=== PATIENT | female | born 1995 | race Caucasian/White ===

== ENCOUNTER 2024-10-13 08:03 | Outpatient (OUT) | payer MEDICARE, MEDICAID, SELFPAY ==
--- OUTSIDE RECORDS SUMMARY | 2024-10-13 08:09 | XMS_ITS | Clinical Summary ---
Author Organization [facility] Healthcare Address [address] [place] [address] Care Team Providers Care Corporate Law Assistant Name Role Phone Unavailable Primary Care Provider Unavailabl e Social History Tobacco Use Types Packs/Day Years Used Date Smoking Tobacco: Never Assessed Comments Unknown Sex and Gender Information Value Date Recorded Sex Assigned at Not on file Legal Sex Female 11:51 PM EDT Gender Identity Not on file Sexual Orientation Not on file Plan of Treatment Not on file
--- OUTSIDE RECORDS SUMMARY | 2024-10-13 08:09 | XMS_ITS | Referral Summary ---
Author Organization [facility] Address [address] [place] [address] Care Team Providers Care Gis Analyst Name Role Phone Oliver Harris DO Primary Care Provider Encounters Date Type Department Care Team Description 08/18/2024 2:20 PM EDT Office Visit [facility] [address] [place] [address] Oliver Rider MD Benign hypertensive heart disease without congestive heart failure (Primary Dx); Dyspnea on exertion; Bilateral leg edema; Primary hypertension; Cerebral palsy, unspecified type (CMS/HCC); History of COVID-19 from Last 3 Months Allergies No known active allergies Medications ergocalciferol (Vitamin D-2) 1.25 MG (56631 Units) capsule Take 1 capsule by mouth every 7 (seven) days. 06/23/2024 Active hydroCHLOROthia zide (HYDRODiuril) 50 mg tablet Take 1 tablet by mouth in the morning. 08/11/2024 Active sertraline (Zoloft) 50 mg tablet Take 1 tablet by mouth in the morning. 07/24/2024 Active Active Problems Problem Noted Date Diagnosed Date Benign hypertensive heart di sease without congestive heart failure 08/20/2024 Dyspnea on exertion 08/20/2024 Bilateral leg edema 08/20/2024 Primary hypertension 08/20/2024 Mixed obsessional thoughts and acts 06/09/2024 Vitamin D deficiency 06/28/2023 Anxiety-like symptoms 06/25/2023 Current mild episode of jonathan r depressive disorder without prior episode 06/25/2023 Anosmia 06/20/2021 Overview (08/18/2024): D/t COVID-19 History of COVID-19 06/20/2021 Overview (08/18/2024): Mar 2020 and Apr 2021. Did not require hospital level care. 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 Saw a specialist from age 2--24 (Dr. Saini). She had 2 surgeries for this (age 4 and 17)--hamstring lengthening, and metatarsal ORIF. Contracture of Achilles tendon 08/18/2018 Overview (08/18/2024): consequence of gait change after surgery. Went to PT and is wearing braces for this. Intermittently uses PT to improve pain free aROM and wears AFO. Social History Tobacco Use Types Packs/Day Years Used Date Smoking Tobacco: Never Smokeless Tobacco: Never Tobacco Cessation:Counseling Given: Not Answered Alcohol Use Standard Drinks/Week Comments Not Currently 0 (1 standard drink = 0.6 oz pur e alcohol) Comments Unknown Sex and Gender Information Value Date Recorded Sex Assigned at Not on file Legal Sex Female 3:24 PM EDT Gender Identity Not on file Sexual Orientation Not on file Last Filed Vital Signs Vital Sign Reading Time Taken Comments Blood Pressure 145/102 08/18/2024 2:11 PM EDT Pulse 101 08/18/2024 2:11 PM EDT Temperature - - Respiratory Rate - - Oxygen Saturation 98% 08/18/2024 2:11 PM EDT Inhaled Oxygen Concentration - - Weight 94.8 kg (209 lb) 08/18/2024 2:11 PM EDT Height 167.6 cm (5' 6 ) 08/18/2024 2:11 PM EDT Body Mass Index 33.73 08/18/2024 2:11 PM EDT Plan of Treatment Upcoming Encounters Date Type Department Care Team (Late st Contact Info) Description 10/13/2024 1:00 PM EDT Office Visit [facility] [address] [place] [address] Scott Tompkins, MARINE EQUIPMENT DESIGN ENGINEER [address] [place] [address] Procedures Procedure Name Priority Date/Time Associated Diagnosis Comments ECG 12-LEAD Routine 08/18/2024 5:20 PM EDT Dyspnea on exertion ECG 12 LEAD UNIT PERFORMED Routine 08/18/2024 2:45 PM EDT Benign hypertensive heart disease without congestive heart failure from Last 3 Months Results * ECG 12 lead (08/18/2024 5:20 PM EDT) Narrative Oliver Rider MD - 08/18/2024 5:20 PM EDT normal sinus rhythm, heart rate 89 bpm, right axis deviation, borderline EKG Oliver Rider MD ECG ORDERABLES Final Result * ECG 12 lead unit performed (08/18/2024 2:45 PM EDT) Oliver Rider MD ECG ORDERABLES Final Result from Last 3 Months Insurance [place] Care Teams Gis Analyst Relationship Specialty Start Date End Date Oliver Harris DO [address] [place] [address] PCP - General Family Medicine 08/17/24
--- OUTSIDE RECORDS SUMMARY | 2024-10-13 08:09 | XMS_ITS | Clinical Summary ---
Author Organization [facility] Address [id number] [address] [place] [address] Care Team Providers Care Fisheries Technical Officer Name Role Phone Stephen Cheng MD Primary Care Provider [phone] Social History Tobacco Use Types Packs/Day Years Used Date Smoking Tobacco: Never Assessed Childcare Answer Date Recorded Childcare Unknown 09/29/2018 Employment Answer Date Recorded Employment Unknown 09/29/2018 Purpose - Life Answer Date Recorded Purpose and direction in life Unknown Comments Unknown Sex and Gender Information Value Date Recorded Sex Assigned at Not on file Legal Sex Female 6:41 PM EDT Gender Identity Not on file Sexual Orientation Not on file Plan of Treatment Not on file Medical Devices Not on file Insurance [facility] Care Teams Fisheries Technical Officer Relationship Specialty Start Date End Date Stephen Cheng MD PCP - General 09/01/17
--- OUTSIDE RECORDS SUMMARY | 2024-10-13 08:09 | XMS_ITS | Clinical Summary ---
Author Organization [facility] Address [address] [place] [address] Care Team Providers Care Armed Guard Name Role Phone Oliver Harris DO Primary Care Provider [phone] Allergies No known active allergies Medications ergocalciferol (Vitamin D-2) 1.25 MG (69351 Units) capsule Take 1 capsule by mouth [...] improve pain free aROM and wears AFO. Encounters Date Type Department Care Team Description 08/18/2024 2:20 PM EDT Office Visit [facility] [address] [place] [phone] Oliver Rider MD Benign hypertensive heart disease without congestive heart failure (Primary Dx); Dyspnea on exertion; Bilateral leg edema; Primary hypertension; Cerebral palsy, unspecified type (CMS/HCC); History of COVID-19 from Last 3 Months Family History Relation Name Status Comments Brother Alive Father Alive Mother Alive Social History Tobacco Use Types Packs/Day Years [...] Description 10/13/2024 1:00 PM EDT Office Visit [facility] [address] [place] [phone] Scott Tompkins, SOFTWARE SPECIALIST [address] [place] [address] Health Maintenance Due Date Last Done Comments Depression Screening 2007 COVID-19 Vaccine ( season) 2023 07/31/2020, 07/01/2020 Pap Smear 07/08/2024 07/08/2021 Influenza Vaccine (Season Ended) 2024 Adult Tetanus 08/19/2033 08/20/2023 Zoster Vaccines (1 of 2) 12/13/2045 04/14/2024, 06/2023 HIB Vaccines Completed 07/26/2000, 06/18, 07/07/1997, Additional history exists IPV Vaccines Completed 07/26/2000, 12/2000, 07/07/1997, Additional history exists Varicella Vaccines Completed 04/14/2024, 08/20/2023 HPV Vaccines Aged Out No longer eligi ble based on patient's age to complete this topic Meningococcal B Vaccine Aged Out No l onger eligible based on patient's age to complete this topic Meningococcal Vaccine Aged Out No enrrique jerrell eligible based on patient's age to complete this topic Pneumococcal Vaccine: Pediatrics (0 to 5 Years) and At-Risk Patients (6 to 64 Years) Aged Out No longer eligible based on patient's age to complete this topic Rotavirus Vaccines Aged Out No longer eligible based on patient's age to complete this topic Procedures Procedure Name Priority Date/Time Associated Diagnosis Comments ECG 12-LEAD Routine 08/18/2024 5:20 PM EDT Dyspnea on exertion ECG 12 LEAD UNIT PERFORMED Routine 08/18/2024 2:45 PM EDT Benign hypertensive heart disease without congestive heart failure from Last 3 Months Results * ECG 12 lead (08/18/2024 5:20 PM EDT) Oliver Rodriguez MD - 08/18/2024 5:20 PM EDT normal sinus rhythm, heart rate 89 bpm, right axis deviation, borderline EKG Oliver Rider MD ECG ORDERABLES Final Result * ECG 12 lead unit performed (08/18/2024 2:45 PM EDT) Oliver Rider MD ECG ORDERABLES Final Result from Last 3 Months Insurance [place] Care Teams Armed Guard Relationship Specialty Start Date End Date Oliver Harris DO [address] [place] [address] PCP - General Family Medicine 08/17/24
--- NOTE | 2024-10-13 09:00 | CA_ITS ---
Patient Name: ADRIÁN LAM MR#: [id number] : 1995 Exam Date: 10/13/2024 Ordering Doctor: DR. SHILOH MILES M.D. ECHOCARDIOGRAM REPORT PROCEDURE: CA ECHO DOPPLER COMPLETE INDICATIONS: Dyspnea on exertion, edema, hypertension COMPARISON: None. DESCRIPTION: COMPLETE ECHOCARDIOGRAM Real-time transthoracic echocardiography with 2D, M-mode, spectral and color flow Doppler performed. QUALITY: Technical quality was good. LEFT VENTRICLE: Normal chamber size. Borderline wall thickness. Normal systolic function. Estimated left ventricular ejection fraction is 65%. LV EF: Normal left ventricular ejection fraction, (>55%). DIASTOLIC: Normal diastolic function. ATRIAL SEPTUM: Visually appears intact. LEFT ATRIUM: Normal chamber size. RIGHT ATRIUM: Normal chamber size. RIGHT VENTRICLE: Normal chamber size. Normal right ventricular systolic function. TRICUSPID VALVE: Normal mobility and thickness. No stenosis with trivial regurgitation. No evidence of pulmonary hypertension. RVSP 24 mmHg MITRAL VALVE: Normal mobility and thickness. No evidence of mitral valve stenosis. There is no mitral annular calcification. No mitral regurgitation. AORTIC VALVE: Normal trileaflet appearance. No visible sclerosis. Normal leaflet mobility. No evidence of aortic valve stenosis. No aortic regurgitation. AORTIC ROOT: Normal diameter and appearance, measuring 3.1 cm. Normal size ascending aorta measuring 3.1 cm. PULMONIC VALVE: Normal thickness and mobility. No stenosis. Trivial regurgitation. PERICARDIUM: No evidence of pericardial effusion. IVC: Not well visualized. PLEURA: CONCLUSION: 1. Normal ventricular size and systolic function. Estimated LVEF is 65%. 2. Normal diastolic function. 3. No significant valvular dysfunction. 4. Normal right-sided pressures. Adult Echocardiography Procedure Report Left Ventricle LVEDD (3.7 - 5.6 cm): 4.13 cm LVESD (2.2 - 4.0 cm): 3.44 cm LVIVS thickness (0.6 - 1.2 cm): 1.08 cm LVPW thickness (0.5 - 1.0 cm): 1.01 cm E - e': 8.08 LVOT Max Gradient: 2.49 mm[Hg] LVOT Area (cm2): 0.79 m/s Peak Velocity (LVOT): 0.79 m/s LVOT Diameter 2.15 cm Left Ventricular Ejection Fraction: 65 % Left Atrium LA Volume Index (2D A2C): 19.56 ml/m2 Left Atrium Systolic Dimension: 2.85 cm Mitral Valve MV E to A Ratio: 1.56 Mitral Valve A-Wave Peak Velocity: 0.56 m/s Mitral Valve E-Wave Peak Velocity: 0.87 m/s Right Ventricle Aorta AO Root Diam: 3.15 cm Ascending Ao Diam: 3.11 cm Aortic Valve AoV Area (Peak Chris): 3.59 cm2, 3.59 cm2 Peak Velocity(Antegrade Flow): 0.80 m/s Peak Gradient(Antegrade Flow): 2.53 mm[Hg] Tricuspid Valve Peak Velocity (Regurgitant Flow): 2.27 m/s Pulmonic Valve Peak Gradient: 1.91 mm[Hg], 2.49 mm[Hg] Right Atrium Right Atrium Systolic Pressure: 26.42 ml, 26.42 ml Dictated by: Nicola Locke M.D. on 10/13/2024 at 19:05 Approved by: Nicola Locke M.D. on 10/13/2024 at 19:08
== END 2024-10-13 08:04 | disposition home or self-care (01) ==
LOC: US 08:07
PROVIDERS: PCP Family Medicine; Visit Provider Internal Medicine Cardiovascular Disease
DX: I11.9 Hypertensive heart disease without heart failure (principal); R06.09 Other forms of dyspnea; R60.0 Localized edema
CPT/HCPCS: 76775; 93306; 93975

== ENCOUNTER 2024-10-27 06:52 | Outpatient (RCR) | payer MEDICARE, MEDICAID, SELFPAY ==
--- NOTE | 2024-07-28 11:21 | CR1_ITS ---
The [facility] Test Date: 2024-07-28 Pat Name: ADRIÁN LAM Department: Room: - Gender: Female Title Department Manager: : 1995 Requested By: LINDSEY BAUMAN Order Number: [id number] Barbara MD: LINDSEY BAUMAN Interpretive Statements Session Date: Electronically Signed On 07-30-2024 19:59:09 EDT by LINDSEY BAUMAN
--- NOTE | 2024-08-01 14:11 | CR1_ITS ---
The [facility] Test Date: 2024-08-01 Pat Name: ADRIÁN LAM Department: Room: - Gender: Female Technical Sales Director: : 1995 Requested By: Edenilson Cobos Order Number: [id number] Barbara MD: Edenilson Cobos Interpretive Statements Session Date: 08/01/2024 Okay to proceed with outlined treatment plan. Electronically Signed On 08-09-2024 11:01:38 EDT by Edenilson Cobos
--- NOTE | 2024-08-23 07:43 | CR1_ITS ---
The [facility] Test Date: 2024-08-23 Pat Name: ADRIÁN LAM Department: Room: - Gender: Female Office Technology Instructor: : 1995 Requested By: Edenilson Cobos Order Number: [id number] Barbara MD: Edenilson Cobos Interpretive Statements Okay to continue with outlined treatment plan. Electronically Signed On 08-28-2024 7:49:17 EDT by Edenilson Cobos
--- NOTE | 2024-09-21 07:55 | CR1_ITS ---
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 Patient encouraged to continue attending pulmonary rehabilitation. Electronically Signed On 09-21-2024 10:42:39 EDT by Edenilson Cobos
--- NOTE | 2024-10-19 08:27 | CR1_ITS ---
The [facility] Test Date: 2024-10-19 Pat Name: ADRIÁN LAM Department: Room: - Gender: Female Steam Table Attendant: : 1995 Requested By: Edenilson Cobos Order Number: [id number] Barbara MD: Edenilson Cobos Interpretive Statements Okay to continue with outlined treatment plan. Electronically Signed On 10-25-2024 10:04:02 EDT by Edenilson Cobos
--- NOTE | 2024-11-01 08:13 | PC.NURSE ---
letter sent to outreach patient as she has not been seen in rehab in some time.
--- NOTE | 2024-11-14 07:42 | PC.NURSE ---
Letter sent as outreach. Patient has not been seen in a month with no response to prior outreach. Patient has until 12-01-24 to outreach and update staff per attendance policy, or she will be discharged.
== END 2024-11-20 08:34 | disposition home or self-care (01) ==
LOC: CR 06:52
PROVIDERS: PCP Family Medicine; Visit Provider Family Medicine
DX: R06.02 Shortness of breath (principal); Z86.16 Personal history of COVID-19
CPT/HCPCS: 94625; G0239

== ENCOUNTER 2024-12-01 12:50 | Outpatient (OUT) | payer MEDICARE, MEDICAID, SELFPAY ==
--- OUTSIDE RECORDS SUMMARY | 2024-11-17 07:26 | XMS_ITS | Encounter Summary ---
Author Organization [facility] Address [address], [address] [place] [address] Care Team Providers Care Diamond Saw Operator Name Role Phone Oliver Harris DO Primary Care Provider Encounter Details Date Type Department Care Team (Latest Contact Info) Description 11/17/2024 7:26 AM EDT - 11/17/2024 11:59 PM EDT Hospital Encounter [facility] [address] [phone] Irina Adams, PT Discharge Disposition: Home or Self Care Social History Tobacco Use Types Packs/Day Years Used Date Smoking Tobacco: Never Smokeless Tobacco: Never Alcohol Use Standard Drinks/Week Comments Not Currently 0 (1 standard drink = 0.6 oz pur e alcohol) [facility] Utilities Answer Date Recorded In the past 12 months has [employer], [employer], oil, or water [employer] threatened to shut off services in your home? No 04/28/2024 AUDIT-C Answer Date Recorded Q1: How often do you have a drink containing alcohol? Never 10/31/2024 Q2: How many drinks containi ng alcohol do you have on a typical day when you are drinking? Patient does not drink Q3: How often do you have si x or more drinks on one occasion? Never 10/31/2024 Overall Financial Resource Strain (CARDIA) Answe r Date Recorded How hard is it for you to pa y for the very basics like food, housing, medical care, and heating? Not hard at all 12/28/2023 PHQ-2 Answer Date Recorded PHQ-9 Total Score 2 10/31/2024 Exercise Vital Sign Answer Date Recorde d On average, how many days pe r week do you engage in moderate to strenuous exercise (like a brisk walk)? 1 day 10/31/2024 On average, how many minutes do you engage in exercise at this level? 0 min 10/31/2024 Hunger Vital Sign Answer Date Recorded Within the past 12 months, y ou worried that your food would run out before you got the money to buy more. Never true 04/28/19 25 Within the past 12 months, t he food you bought just didn't last and you didn't have money to get more. Never true 04/28/2024 PRAPARE - Transportation Answer Date Re corded In the past 12 months, has l ack of transportation kept you from medical appointments or from getting medications? No 04/19 In the past 12 months, has l ack of transportation kept you from meetings, work, or from getting things needed for daily living? No 04/28/2024 Housing Stability Vital Sign Answer Tonny e Recorded Unable to Pay for Housing in the Last Year Not o n file 10/03/2022 Number of Places Lived in the Last Year Not on f ile 10/03/2022 In the last 12 months, was t here a time when you did not have a steady place to sleep or slept in a alf (including now)? No 10/03/2022 Housing Stability Vital Sign Answer Tonny e Recorded In the last 12 months, was t here a time when you were not able to pay the mortgage or rent on time? No 04/28/2024 In the past 12 months, how m any times have you moved where you were living? 0 04/28/2024 At any time in the past 12 m [facility], were you homeless or living in a alf (including now)? No 04/28/2024 Food Insecurity Answer Date Recorded Within the past 12 months, y ou worried that your food would run out before you got the money to buy more. 1 04/28/2024 Within the past 12 months, t he food you bought just didn't last and you didn't have money to get more. 1 04/28/2024 Comments No Sex and Gender Information Value Date Recorded Sex Assigned at Female 06/20/2021 2:47 PM EST Legal Sex Female 2:54 PM EST Gender Identity Female 06/20/2021 2:47 PM EST Sexual Orientation Straight 06/10/2023 6: 54 PM EST documented as of this encounter Medications at Time of Discharge sertraline (ZOLOFT) 25 MG tablet TAKE 1 AND 1/2 TABLETS DAILY BY MOUTH 10/09/2024 Handicap Placard MISCIndications:Ot her cerebral palsy (HCC) by Does not apply route Display in front windshield of car; DEMETRIS 5 years 1 each 06/25/2023 hydroCHLOROthiazid e (HYDRODIURIL) 50 MG tabletIndications: Secondary hypertension Take 1 tablet by mouth daily 30 tablet 3 08/11/2024 documented as of this encounter Progress Notes * Irina Adams, PT - 11/17/2024 7:30 AM EDT Images from the original note were not included. [facility] Outpatient Physical Therapy Daily Note Date: 11/17/2024 Patient Name: Nancy Garcia : 1995 (28 y.o.) Referring Provider (secondary): Dr. Oliver Harris Diagnosis: Mixed Stress and urge incontiency Treatment Diagnosis: urinary incontience Onset Date: 09/20/24 PT Insurance Information: [facility], Medicaid Total # of Visits Approved: 10 Per Physician Order Total # of Visits to Date: 2 Plan of Care/Certification Expiration Date: 12/15/24 Pre-Treatment Pain: 07/27 Assessment Assessment: Patient reports pain R ankle 4-08/26, R ankle is swollen. Patient reports she followed up with her Dr after fall on 11/03/24 and that R ankle is sprained, no fx. She arrived in w/c today with her mother pushing chair. Patient brought in completed bladder log. Reviewed log and completed education on bladder retraining, bladder irritants and controlig/ supressing bladder urgency. Completed therex per Doc Flow. revied HEP and upgraded HEP with second handout. Continue per plan 1xwk. Plan Continue with current plan of care Exercises/Modalities/Manual: See DocFlow Sheet Education: Bladder retraining handpouts Goals (Total # of Visits to Date: 2) Short Term Goals Time Frame for Short Term Goals: 6 Short Term Goal 1: Patient to be educated on and independent with core exercises including pelvic floor ex Short Term Goal 2: Patient to be educated on and report understanding of bladder retraining and urgency control Fpc Goals Time Frame for Forwarder Operator Goals : 10 Forwarder Operator Goal 1: Improve urinary control with less urinary incontience with Urinary Distress Inventory <10/04 (from 03/06) Treatment Tolerance: Treatment Tolerance: Tolerated treatment well. Post Treatment Pain: 4/10 Time In: 7:31 Time Out : 8:16 Timed Code Treatment Minutes: 45 Minutes Total Treatment Time: 45 Minutes Irina Adams, JEAN-CLAUDE Date: 11/17/2024 documented in this encounter Plan of Treatment Upcoming Encounters Date Type Department Care Team (Late st Contact Info) Description 12/08/2024 7:45 AM EDT Appointment [facility] Physical Therapy [address] [place] [place] [address] Irina Adams, PT documented as of this encounter Visit Diagnoses Not on filedocumented in this encounter Additional Health Concerns Assessment Noted Time A fall risk assessment has been complete d for the patient 10/31/2024 9:16 AM EDT documented as of this encounter Care Teams Diamond Saw Operator Relationship Specialty Start Date End Date Oliver Harris DO [address] [place] [address] PCP - General Family Medicine 06/20/21 documented as of this encounter
--- OUTSIDE RECORDS SUMMARY | 2024-11-17 09:40 | XMS_ITS | Encounter Summary ---
Author Organization [facility] Address [address] [place] [address] Care Team Providers Care Gear Finisher Name Role Phone Oliver Harris DO Primary Care Provider [phone] Reason for Visit * Reason Comments Follow-up Encounter Details Date Type Department Care Team (Late st Contact Info) Description 11/17/2024 9:40 AM EDT Office Visit [facility] [address] [place] [address] Scott Tompkins, ANIMAL COP [address] [place], [place] [id number] Primary hypertension (Primary Dx); Dyspnea on exertion; Bilateral leg edema; Cerebral palsy, unspecified type (CMS/HCC); History of COVID-19 Social History Tobacco Use Types Packs/Day Years Used Date Smoking Tobacco: Never Smokeless Tobacco: Never Alcohol Use Standard Drinks/Week Comments Not Currently 0 (1 standard drink = 0.6 oz pur e alcohol) Comments Unknown Sex and Gender Information Value Date Recorded Sex Assigned at Female 11/15/2024 3:33 PM EDT Legal Sex Female 3:24 PM EDT Gender Identity Female 11/15/2024 3:33 PM EDT Sexual Orientation Heterosexual or Straight 10/19 3:33 PM EDT documented as of this encounter Last Filed Vital Signs Vital Sign Reading Time Taken Comments Blood Pressure 162/100 11/17/2024 9:31 AM EDT Pulse 90 11/17/2024 9:31 AM EDT Temperature - - Respiratory Rate 12 11/17/2024 9:31 AM EDT Oxygen Saturation 99% 11/17/2024 9:31 AM EDT Inhaled Oxygen Concentration - - Weight 94.8 kg (209 lb) 11/17/2024 9:31 AM EDT Height 167.6 cm (5' 6 ) 11/17/2024 9:31 AM EDT Body Mass Index 33.73 11/17/2024 9:31 AM EDT documented in this encounter Progress Notes * Scott Tompkins, ANIMAL COP - 11/17/2024 9:40 AM EDT Images from the original note were not included. SUBJECTIVE Reason for Visit: Nancy Garcia is a 28 y.o. year old female patient being seen for follow-up visit. HPI: Nancy Garcia is a 28 y.o. year old female with significant medical history of hypertension. On hydrochlorothiazide which was started mainly because of complaint of leg edema, she has history of cerebral palsy and also anxiety depression disorder and mixed obsessional thoughts and acts. Patient reports that she had COVID infection in 2019 in 2020, although it was mild however it left her with significant shortness of breath therefore she was sent for pulmonary rehabilitation. She was not hospitalized because of COVID. She has been noticing some swelling in her lower extremities particularly of the feet. Also she reports that her legs become red when she is walking on treadmill. She walks on treadmill about 10 minutes with minor incline at 1.5 to 2 mph and she exercise on stationary bike for about 30 to 35 minutes. Of breath has been improving. She denies that she underwent pulmonary function test. Also she reports that she always had little legs edema but it got worse after COVID. 11/17/2024 office visit: Patient seen and evaluated in the office today, accompanied by her mom. She reports worsening lowerextremity edema after starting amlodipine, now better now that she has stopped. She reported urge incontinence with lisinopril and amlodipine. She states her GARCIA is stable. Otherwise she denies chestpain, palpitations, lightheadedness or dizziness. Reports her blood pressures are elevated at home ranging in the 140s to 150s systolic. 08/18/2024 office visit (Dr. Rider): She denies any chest pain at rest or with exertion. She denies orthopnea or paroxysmal nocturnal dyspnea or dizziness. She reports that her heart rate goes up she feels very faint while she is exercising but not in any other time. She wears braces on the left foot due to cerebral palsy. She reports that she had whitecoat syndrome in the past and blood pressure was always high at the doctor office even before she got COVID. She denies caffeine consumption, she denies smoking, alcohol or illicit drugs Medical History[1] Surgical History[2] Problem List[3] family history is not on file. Social History[4] OBJECTIVE Visit Vitals Smoking Status Never Physical Exam Constitutional: General Appearance: well-developed, appears stated age. Level of Distress: no acute distress. Neck: Jugular Veins: normal jugular venous pressure. Lungs: Auscultation: no rales or rhonchi and normal breath sounds. Cardiovascular: Rate And Rhythm: regular Heart Sounds: normal S1 and s2; Systolic Murmur: not heard. Diastolic Murmur: not heard. Extremities: +2 LE edema Peripheral Pulses: Pulses: full and equal in all extremities except if noted. Abdomen: Inspection and Palpation: non distended or tender and soft. Musculoskeletal: Inspection: no joint tenderness or swelling. Neurologic: Gait: normal gait. Psychiatric: Mental Status: alert and normal affect. Skin: Inspection and Palpation: warm and dry. Allergies: Allergies[5] Outpatient Medications: Current Outpatient Medications Medication Instructions ergocalciferol (Vitamin D-2) 1.25 MG (71745 Units) capsule 1 capsule, oral, Every 7 days hydroCHLOROthiazide (HYDRODiuril) 50 mg tablet 1 tablet, oral, Daily sertraline (Zoloft) 50 mg tablet 1 tablet, oral, Daily Recent Labs: No visits with results within 2 Month(s) from this visit. Latest known visit with results is: No results found for any previous visit. I have personally reviewed and anaylzed the following laboratory results above. These findings havebeen analyzed in the context of the patient's clinical presentation. Cardiovascular Diagnostic Studies: TTE 10/13/2024: Conclusion: 1. Normal ventricular size and systolic function. Estimated LVEF is 65%. 2. Normal diastolic function. 3. No significant valvular dysfunction. 4. Normal right-sided pressures. Labs: 06/16/2024 Vitamin D 28.7 05/19/2024: Sodium 137, potassium 3.1, BUN 9, creatinine 0.6, glucose 93, GFR above 90, calcium 9.6 Total bilirubin 0.3, alk phos 110, ALT 18, AST 16 White blood count 5.9, hemoglobin 14.2, hematocrit 43, platelet 370 HbA1c 4.6% Last Images: EKG 08/18/2024 showed normal sinus rhythm, heart rate 89 bpm, right axis deviation, borderline EKG 12 Lead ECG: Encounter Date: 08/18/24 ECG 12 lead Narrative normal sinus rhythm, heart rate 89 bpm, right axis deviation, borderline EKG I have personally reviewed and analyzed all available cardiac diagnostic tests and imaging reports.Findings have been analyzed in the context of the patient's clinical status. Assessment and Plan #Hypertension Blood pressure today is 162/100 Elevated Patient reports blood pressures at home range from 140s to 150s Patient did not tolerate amlodipine or lisinopril due to side effects, urinary urge incontinence Renal ultrasound 10/13/2024: No evidence of hemodynamically significant renal artery stenosis TSH 5.23, T4 1.0 - Continue hydrochlorothiazide 50 mg daily - Add losartan 25 mg daily #Dyspnea on exertion TTE normal 10/13/2024: EF 65%, no significant valvular abnormalities GARCIA is stable - Obtain PFTs #Bilateral lower extremity edema TTE normal 10/13/2024: EF 65%, no significant valvular abnormalities +2 lower extremity edema that was worsened with amlodipine ---> now improved some since discontinuing Patient mentions she has had stable lower extreme edema since being diagnosed with COVID-19 #History of COVID-19 Patient had mild COVID in [id number], resulting in persistent dyspnea requiring pulmonary rehab. Shewas not hospitalized. Reports worsening chronic leg edema and redness with treadmill use. Exercisesdaily and notes improved breathing. No pulmonary function test done. #Cerebral palsy Plan Overview: Follow-up in 2 months Will add losartan 25 mg daily Obtain PFTs BMP in 1 week No follow-ups on file. Scott Tompkins, [facility] Cardiovascular Medicine [1] Past Medical History: Diagnosis Date Cerebral palsy (CMS/HCC) Hypertension [2] No past surgical history on file. [3] Patient Active Problem List Diagnosis Anosmia Anxiety-like symptoms Cerebral palsy (CMS/HCC) Contracture of Achilles tendon Current mild episode of major depressive disorder without prior episode History of COVID-19 Mixed obsessional thoughts and acts Vitamin D deficiency Benign hypertensive heart disease without congestive heart failure Dyspnea on exertion Bilateral leg edema Primary hypertension [4] Social History Tobacco Use Smoking status: Never Smokeless tobacco: Never Substance Use Topics Alcohol use: Not Currently Drug use: Never [5] No Known Allergies documented in this encounter Plan of Treatment Upcoming Encounters Date Type Department Care Team (Late st Contact Info) Description 01/12/2025 10:00 AM EDT Office Visit [facility] [address] [place] [phone] Scott Tompkins CNP [address] [place] [address] Scheduled Orders Name Type Priority Associated Diagnoses Orde r Schedule Basic metabolic panel Lab Routine Primary hypertension Expected: 11/17/2024 (Approximate), Expires: 11/17/2025 Pulmonary function testing Spirometry; Body Box (lung volumes, airway resistance, and SVC), DLCO PFT Routine Dyspnea on exertion Expected: 11/17/2024 (Approximate), Expires: 11/17/2025 documented as of this encounter Visit Diagnoses Diagnosis Primary hypertension- Primary Unspecified essential hypertension Dyspnea on exertion Other dyspnea and respiratory abnormality Bilateral leg edema Edema Cerebral palsy, unspecified type (CMS/HCC) History of COVID-19 documented in this encounter Care Teams Gear Finisher Relationship Specialty Start Date End Date Oliver Harris DO [address] [place] [address] PCP - General Family Medicine 08/17/24 documented as of this encounter
--- OUTSIDE RECORDS SUMMARY | 2024-11-24 07:27 | XMS_ITS | Encounter Summary ---
Author Organization [facility] Address [address], [address] [place] [address] Care Team Providers Care Application Support Lead Name Role Phone Oliver Harris DO Primary Care Provider [phone] Encounter Details Date Type Department Care Team (Latest Contact Info) Description 11/24/2024 7:27 AM EDT - 11/24/2024 11:59 PM EDT Hospital Encounter [facility] [address] [id number] Irina Adams, PT Discharge Disposition: Home or Self Care Social History Tobacco Use Types Packs/Day Years Used Date Smoking Tobacco: Never Smokeless Tobacco: Never Alcohol Use Standard Drinks/Week Comments Not Currently 0 (1 standard drink = 0.6 oz pur e alcohol) [facility] Utilities Answer Date Recorded In the past 12 months has [employer], [employer], oil, or water [employer] threatened to shut off services in your [...] place to sleep or slept in a penitentiary (including now)? No 10/03/2022 Housing Stability Vital Sign Answer Tonny e Recorded In the last 12 months, was t here a time when you were not able to pay the mortgage or rent on time? No 04/28/2024 In the past 12 months, how m any times have you moved where you were living? 0 04/28/2024 At any time in the past 12 m [facility], were you homeless or living in a penitentiary (including now)? No 04/28/2024 Food Insecurity Answer [...] Progress Notes * Irina Adams, PT - 11/24/2024 7:30 AM EDT Images from the original note were not included. [facility] Outpatient Physical Therapy Daily Note Date: 11/24/2024 Patient Name: Nancy Garcia : 1995 (28 y.o.) Referring Provider (secondary): Dr. Oliver Harris Diagnosis: Mixed Stress and urge incontiency Treatment Diagnosis: urinary incontience Onset Date: 09/20/24 PT Insurance Information: MCR, Medicaid Total # of Visits Approved: 10 Per Physician Order Total # of Visits to Date: 3 Plan of Care/Certification Expiration Date: 12/15/24 Pre-Treatment Pain: 2/10 Assessment Assessment: Pain 2/10 in legs and feet this morning from muscle tone from CP. Completed therex per Doc Flow. Reviewed HEP, patient independent and reports compliance. Added education on stretching and stretching ex.Reviewed bladder training techniques , patient verbalizes understanding. Plan Continue with current plan of care Exercises/Modalities/Manual: See DocFlow Sheet Education: Goals (Total # of Visits to Date: 3) Short Term Goals Time Frame for Short Term Goals: 6 Short Term Goal 1: Patient to be educated on and independent with core exercises including pelvic floor ex-MET Short Term Goal 2: Patient to be educated on and report understanding of bladder retraining and urgency control-MET [employer] Driver Goals Time Frame for Residential Goals : 10 [employer] Driver Goal 1: Improve urinary control with less urinary incontience with Urinary Distress Inventory <6/18 (from 03/06) Treatment Tolerance: Treatment Tolerance: Tolerated treatment well. Post Treatment Pain: 2/10 Time In: 7:30 Time Out : 8:15 Timed Code Treatment Minutes: 45 Minutes Total Treatment Time: 45 Minutes Irina Adams PT Date: 11/24/2024 documented in this encounter Plan of Treatment Upcoming Encounters Date Type Department Care Team (Late st Contact Info) Description 12/08/2024 7:45 AM EDT Appointment [facility] Physical Therapy [address] [place] [address] Irina Adams, PT documented as of this encounter Visit Diagnoses Not on filedocumented in this encounter Additional Health Concerns Assessment Noted Time A fall risk assessment has been complete d for the patient 10/31/2024 9:16 AM EDT documented as of this encounter Care Teams Application Support Lead Relationship Specialty Start Date End Date Oliver Harris DO [address] [place] [address] PCP - General Family Medicine 06/20/21 documented as of this encounter
--- OUTSIDE RECORDS SUMMARY | 2024-12-01 07:45 | XMS_ITS | Encounter Summary ---
Author Organization [facility] Address [address], [address] [place] [address] Care Team Providers Care Tailor Men'S Ready To Wear Name Role Phone Oliver Harris DO Primary Care Provider Encounter Details Date Type Department Care Team (Late st Contact Info) Description 12/01/2024 7:45 AM EDT Hospital Encounter [facility] [address] [place] [address] Radha Grier Arrived Social History Tobacco Use Types Packs/Day Years Used Date Smoking Tobacco: Never Smokeless Tobacco: Never Alcohol Use Standard Drinks/Week Comments Not Currently 0 (1 standard drink = 0.6 oz pur e alcohol) [facility] Utilities Answer Date Recorded In the past 12 months has [employer], gas, oil, or water [employer] threatened to shut off services in your [...] place to sleep or slept in a fpc (including now)? No 10/03/2022 Housing Stability Vital Sign Answer Tonny e Recorded In the last 12 months, was t here a time when you were not able to pay the mortgage or rent on time? No 04/28/2024 In the past 12 months, how m any times have you moved where you were living? 0 04/28/2024 At any time in the past 12 m [facility], were you homeless or living in a fpc (including now)? No 04/28/2024 Food Insecurity Answer [...] PM EST documented as of this encounter Plan of Treatment Upcoming Encounters Date Type Department Care Team (Late st Contact Info) Description 12/08/2024 7:45 AM EDT Appointment [facility] Physical Therapy [address] [place] [address] Irina Adams, PT documented as of this encounter Visit Diagnoses Not on filedocumented in this encounter Additional Health Concerns Assessment Noted Time A fall risk assessment has been complete d for the patient 10/31/2024 9:16 AM EDT documented as of this encounter Care Teams Tailor [employer] Ready To Wear Relationship Specialty Start Date End Date Oliver Harris DO [address] [place] [address] PCP - General Family Medicine 06/20/21 documented as of this encounter
--- OUTSIDE RECORDS SUMMARY | 2024-12-01 08:33 | XMS_ITS | Encounter Summary ---
Author Organization [facility] Address [address], [address] [place] [address] Care Team Providers Care R And D Lab Technician Name Role Phone Oliver Harris DO Primary Care Provider Encounter Details Date Type Department Care Team (Latest Contact Info) Description 12/01/2024 8:33 AM EDT Hospital Encounter [facility] [address] [place] [address] Essential hypertension; Bilateral swelling of feet and ankles; Elevated TSH; Cervical cancer screening Social History Tobacco Use Types Packs/Day Years Used Date Smoking Tobacco: Never Smokeless Tobacco: Never Alcohol Use Standard Drinks/Week Comments Not Currently 0 (1 standard drink = 0.6 oz pur e alcohol) [facility] Utilities Answer Date Recorded In the past 12 months has [employer], gas, oil, or water [employer] threatened to shut off services in your [...] place to sleep or slept in a intermediate (including now)? No 10/03/2022 Housing Stability Vital Sign Answer Tonny e Recorded In the last 12 months, was t here a time when you were not able to pay the mortgage or rent on time? No 04/28/2024 In the past 12 months, how m any times have you moved where you were living? 0 04/28/2024 At any time in the past 12 m [facility], were you homeless or living in a intermediate (including now)? No 04/28/2024 Food Insecurity Answer [...] Info) Description 12/08/2024 7:45 AM EDT Appointment [facility] Physical Therapy [address] [place] [address] Irina Adams, PT Pending Results Name Type Priority Associated Diagnoses Date /Time Aldosterone Lab Routine Essential hypertension 12/01/2024 8:35 AM EDT Thyroid Antibodies Lab Routine Elevated TSH 12/01/2024 8:35 AM EDT Scheduled Orders Name Type Priority Associated Diagnoses Orde r Schedule Aldosterone Lab Routine Essential hypertension 1 Occurrences starting 12/01/2024 until 12/01/2024 Thyroid Antibodies Lab Routine Elevated TSH 1 Occurrences starting 12/01/2024 until 12/01/2024 PAP Smear Lab Routine Cervical cancer screening 1 Occurrences starting 12/01/2024 until 12/01/2024 documented as of this encounter Procedures Procedure Name Priority Date/Time Associated Diagnosis Comments COMPREHENSIVE METABOLIC PANEL Routine 12/01/2024 8:35 AM EDT Bilateral swelling of feet and ankles Essential hypertension BASIC METABOLIC PANEL Routine 12/01/2024 8:35 AM EDT documented in this encounter Results * (ABNORMAL) Basic Metabolic Panel (12/01/2024 8:35 AM EDT) Sodium 138 135 - 144 mmol/L 12/01/2024 8:35 AM EDT [facility] Potassium 2.8(LL) 3.7 - 5.3 mmol/L 12/01/2024 8:35 AM EDT [facility] Chloride 95(L) 98 - 107 mmol/L 12/01/2024 8:35 AM EDT [facility] CO2 30 20 - 31 mmol/L 12/01/2024 8:35 AM EDT [facility] Anion Gap 13 9 - 17 mmol/L 12/01/2024 8:35 AM EDT [facility] Glucose 100(H) 70 - 99 mg/dL 12/01/2024 8:35 AM EDT [facility] BUN 8 6 - 20 mg/dL 12/01/2024 8:35 AM EDT [facility] Creatinine 0.5 0.5 - 0.9 mg/dL 12/01/2024 8:35 AM EDT [facility] Est, Glom Filt Rate >90 >60 mL/min/1.7 3m2 12/01/2024 8:35 AM EDT [facility] Comment: These results are not intended for use in patients <18 years of age. eGFR results are calculated without a race factor using the 2020 CKD-EPI equation. Careful clinical correlation is recommended, particularly when comparing to results calculated using previous equations. The CKD-EPI equation is less accurate in patients with extremes of muscle mass, extra-renal metabolism of creatine, excessive creatine ingestion, or following therapy that affects renal tubular secretion. Calcium 9.3 8.6 - 10.4 mg/dL 12/01/2024 8:35 AM EDT [facility] 12/01/2024 8:35 AM EDT 12/01/2024 8:40 AM EDT Scott Tompkins HVAC SPECIALIST - SANITATION LABORER CHEMISTRY ORDERABLES Sophie crawley Result [facility] [address] [place] [id number], [facility] [phone] * (ABNORMAL) Comprehensive Metabolic Panel (12/01/2024 8:35 AM EDT) Sodium 137 135 - 144 mmol/L 12/01/2024 8:35 AM EDT [facility] Potassium 2.8(LL) 3.7 - 5.3 mmol/L 12/01/2024 8:35 AM EDT [facility] Chloride 96(L) 98 - 107 mmol/L 12/01/2024 8:35 AM EDT [facility] CO2 31 20 - 31 mmol/L 12/01/2024 8:35 AM EDT [facility] Anion Gap 10 9 - 17 mmol/L 12/01/2024 8:35 AM [facility] Glucose 100(H) 70 - 99 mg/dL 12/01/2024 8:35 AM [facility] BUN 8 6 - 20 mg/dL 12/01/2024 8:35 AM [facility] Creatinine 0.4(L) 0.5 - 0.9 mg/dL 12/01/2024 8:35 AM [facility] Est, Glom Filt Rate >90 >60 mL/min/1.7 3m2 12/01/2024 8:35 AM [facility] Comment: These results are not intended for use in patients <18 years of age. eGFR results are calculated without a race factor using the 2020 CKD-EPI equation. Careful clinical correlation is recommended, particularly when comparing to results calculated using previous equations. The CKD-EPI equation is less accurate in patients with extremes of muscle mass, extra-renal metabolism of creatine, excessive creatine ingestion, or following therapy that affects renal tubular secretion. Calcium 9.3 8.6 - 10.4 mg/dL 12/01/2024 8:35 AM [facility] Total Protein 7.3 6.4 - 8.3 g/dL 12/01/2024 8:35 AM [facility] Albumin 3.9 3.5 - 5.2 g/dL 12/01/2024 8:35 AM [facility] Albumin/Globulin Ratio 1.1 1.0 - 2.5 12/01/2024 8:35 AM [facility] Total Bilirubin 0.4 0.3 - 1.2 mg/dL 12/01/2024 8:35 AM [facility] Alkaline Phosphatase 95 35 - 104 U/L 12/01/2024 8:35 AM [facility] ALT 14 5 - 33 U/L 12/01/2024 8:35 AM [facility] AST 18 <32 U/L 12/01/2024 8:35 AM [facility] Blood BLOOD SPECIMEN / Unknown 12/01/2024 8:35 AM EDT 12/01/2024 8:36 AM EDT Oliver Harris DO CHEMISTRY ORDERABLES Final Result [facility] [address] [place] [address], [facility] [phone] documented in this encounter Visit Diagnoses Diagnosis Essential hypertension Unspecified essential hypertension Bilateral swelling of feet and ankles Elevated TSH Other abnormal blood chemistry Cervical cancer screening Screening for malignant neoplasm of the cervix documented in this encounter Additional Health Concerns Assessment Noted Time A fall risk assessment has been complete d for the patient 10/31/2024 9:16 AM EDT documented as of this encounter Care Teams R And D Lab Technician Relationship Specialty Start Date End Date Oliver Harris DO [address] [place] [address] PCP - General Family Medicine 06/20/21 documented as of this encounter
--- OUTSIDE RECORDS SUMMARY | 2024-12-01 09:40 | XMS_ITS | Encounter Summary ---
Author Organization [facility] Address [address], [address] [place] [address] Care Team Providers Care Farm Equipment Engine Mechanic Name Role Phone Oliver Harris DO Primary Care Provider Reason for Visit * Reason Comments Well Woman Visit Encounter Details Date Type Department Care Team (Late st Contact Info) Description 12/01/2024 9:40 AM EDT Office Visit [facility] [address] [place] [address] Irma Henson DO [address] [place] [address] Hypokalemia (Primary Dx); Cervical cancer screening Social History Tobacco Use Types Packs/Day Years Used Date Smoking Tobacco: Never Smokeless Tobacco: Never Alcohol Use Standard Drinks/Week Comments Not Currently 0 (1 standard drink = 0.6 oz pur e alcohol) [facility] Utilities Answer Date Recorded In the past 12 months has [employer], gas, oil, or water [employer] threatened to shut off services in your [...] place to sleep or slept in a long term (including now)? No 10/03/2022 Housing Stability Vital Sign Answer Tonny e Recorded In the last 12 months, was t here a time when you were not able to pay the mortgage or rent on time? No 04/28/2024 In the past 12 months, how m any times have you moved where you were living? 0 04/28/2024 At any time in the past 12 m [facility], were you homeless or living in a long term (including now)? No 04/28/2024 Food Insecurity Answer [...] PM EST documented as of this encounter Last Filed Vital Signs Vital Sign Reading Time Taken Comments Blood Pressure 140/92 12/01/2024 9:40 AM EDT Pulse 95 12/01/2024 9:40 AM EDT Temperature - - Respiratory Rate - - Oxygen Saturation 98% 12/01/2024 9:40 AM EDT Inhaled Oxygen Concentration - - Weight 98.4 kg (217 lb) 12/01/2024 9:40 AM EDT Height 167.6 cm (5' 6 ) 12/01/2024 9:40 AM EDT Body Mass Index 35.02 12/01/2024 9:40 AM EDT documented in this encounter Plan of Treatment Upcoming Encounters Date Type Department Care Team (Late st Contact Info) Description 12/08/2024 7:45 AM EDT Appointment [facility] Physical Therapy [address] [place] [address] Irina Adams, PT Scheduled Orders Name Type Priority Associated Diagnoses Orde r Schedule Potassium Lab Routine Hypokalemia Expected: 12/04/2024, Expires: 12/01/2025 PAP Smear Lab Routine Cervical cancer screening Expected: 12/01/2024 (Approximate), Expires: 12/01/2025 documented as of this encounter Visit Diagnoses Diagnosis Hypokalemia- Primary Hypopotassemia Cervical cancer screening Screening for malignant neoplasm of the cervix documented in this encounter Additional Health Concerns Assessment Noted Time A fall risk assessment has been complete d for the patient 10/31/2024 9:16 AM EDT documented as of this encounter Care Teams Farm Equipment Engine Mechanic Relationship Specialty Start Date End Date Oliver Harris DO [address] [place] [address] PCP - General Family Medicine 06/20/21 documented as of this encounter
--- OUTSIDE RECORDS SUMMARY | 2024-12-01 12:54 | XMS_ITS | Encounter Summary ---
Author Organization [facility] Address [address], [address] [place] [address] Care Team Providers Care Special Investigation Unit Investigator Name Role Phone Oliver Harris DO Primary Care Provider Encounter Details Date Type Department Care Team (Late st Contact Info) Description 11/06/2024 Results Follow-Up [facility] ASIA [address] [place] [address] Irma Henson, [address] [place] [address] Social History Tobacco Use Types Packs/Day Years Used Date Smoking Tobacco: Never Smokeless Tobacco: Never Alcohol Use Standard Drinks/Week Comments Not Currently 0 (1 standard drink = 0.6 oz pur e alcohol) [facility] Utilities Answer Date Recorded In the past 12 months has [employer], gas, oil, or water [employer] threatened to shut off services in your [...] place to sleep or slept in a mcfp (including now)? No 10/03/2022 Housing Stability Vital Sign Answer Tonny e Recorded In the last 12 months, was t here a time when you were not able to pay the mortgage or rent on time? No 04/28/2024 In the past 12 months, how m any times have you moved where you were living? 0 04/28/2024 At any time in the past [address] [facility], were you homeless or living in a mcfp (including now)? No 04/28/2024 Food Insecurity Answer [...] Info) Description 12/08/2024 7:45 AM EDT Appointment [facility] Physical Therapy [address] [place] [address] Irina Adams, PT Pending Results Name Type Priority Associated Diagnoses Date /Time Thyroid Antibodies Lab Routine Elevated TSH 12/01/2024 8:35 AM EDT Scheduled Orders Name Type Priority Associated Diagnoses Orde r Schedule Thyroid Antibodies Lab Routine Elevated TSH Expected: 11/06/2024, Expires: 11/06/2025 documented as of this encounter Visit Diagnoses Diagnosis Elevated TSH- Primary Other abnormal blood chemistry documented in this encounter Additional Health Concerns Assessment Noted Time A fall risk assessment has been complete d for the patient 10/31/2024 9:16 AM EDT documented as of this encounter Care Teams Special Investigation Unit Investigator Relationship Specialty Start Date End Date Oliver Harris DO [address] [place] [address] PCP - General Family Medicine 06/20/21 documented as of this encounter
--- OUTSIDE RECORDS SUMMARY | 2024-12-01 12:54 | XMS_ITS | Encounter Summary ---
Author Organization [facility] Address [address], [address] [place] [address] Care Team Providers Care Interpretative Dancer Name Role Phone Oliver Harris DO Primary Care Provider [phone] Encounter Details Date Type Department Care Team (Late st Contact Info) Description 10/16/2024 Orders Only [facility] [address] [place] [id number] Provider, MD Wilber Social History Tobacco Use Types Packs/Day Years Used Date Smoking Tobacco: Never Smokeless Tobacco: Never Alcohol Use Standard Drinks/Week Comments Not Currently 0 (1 standard drink = 0.6 oz pur e alcohol) [facility] Utilities Answer Date Recorded In the past 12 months has [employer], gas, oil, or water company threatened to shut off services in your home? No 04/28/2024 Overall Financial Resource Strain (CARDIA) Answe r Date Recorded How hard is it for you to pa y for the very basics like food, housing, medical care, and heating? Not hard at all 12/28/2023 PHQ-2 Answer Date Recorded PHQ-9 Total Score 9 04/25/2024 Hunger Vital Sign Answer Date Recorded Within [...] place to sleep or slept in a fci (including now)? No 10/03/2022 Housing Stability Vital Sign Answer Tonny e Recorded In the last 12 months, was t here a time when you were not able to pay the mortgage or rent on time? No 04/28/2024 In the past 12 months, how m any times have you moved where you were living? 0 04/28/2024 At any time in the past 12 m [facility], were you homeless or living in a fci (including now)? No 04/28/2024 Food Insecurity Answer [...] Info) Description 12/08/2024 7:45 AM EDT Appointment [facility] Physical Therapy [address] [place] [address] Irina Adams, PT documented as of this encounter Procedures Procedure Name Priority Date/Time Associated Diagnosis Comments ECHOCARDIOGRAM TRANSTHORACIC Routine 10/13/2024 7:48 AM EDT documented in this encounter Results * Echocardiogram transthoracic (10/13/2024 7:48 AM EDT) us Historical Provider ECHO ORDERABLES Final Res ult documented in this encounter Visit Diagnoses Not on filedocumented in this encounter Care Teams Interpretative Dancer Relationship Specialty Start Date End Date Oliver Harris DO [address] [place] [address] PCP - General Family Medicine 06/20/21 documented as of this encounter
--- OUTSIDE RECORDS SUMMARY | 2024-12-01 12:54 | XMS_ITS | Clinical Summary ---
Author Organization [facility] Address [address], [address] [place] [address] Care Team Providers Care General Service Officer Name Role Phone Oliver Harris DO Primary Care Provider Allergies No known active allergies Medications Handicap Placard MISCIndications: Other cerebral palsy (HCC) by Does not apply route Display in front windshield of car; DEMETRIS 5 years 1 each 4 Active sertraline (ZOLOFT) 25 MG tablet TAKE 1 AND 1/2 TABLETS DAILY BY MOUTH 5 Active losartan (COZAAR) 25 MG tablet Take 2 tablets by mouth daily 180 tablet 5 Active potassium chloride (KLOR-CON M) 20 MEQ extended release tablet Take 1 tablet by mouth 2 times daily 60 tablet 5 Active clindamycin (CLEOCIN) 300 MG capsule Take 1 capsule by mouth 2 times daily for 7 days 14 capsule 5 025 Active hydroCHLOROthiaz bharati (HYDRODIURIL) 50 MG tabletIndication s:Secondary hypertension Take 1 tablet by mouth daily 30 tablet 3 5 025 Discontin ued(Side effects) sertraline (ZOLOFT) 50 MG tablet Take 0.5 tablets by mouth daily 5 025 Discontin ued(LIST CLEANUP) amLODIPine (NORVASC) 5 MG tabletIndication s:Essential hypertension Take 1 tablet by mouth daily 30 tablet 5 5 025 Discontin ued(Side effects) Active Problems Problem Noted Date Diagnosed Date Other specified eating disorder 11/03/2024 Mixed obsessional thoughts and acts 06/09/2024 Vitamin D deficiency 06/28/2023 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 Did not require hospital level care. 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 Saw a specialist from age 2--24 (Dr. Saini). She had 2 surgeries for this (age 4 and 17)--hamstring lengthening, and metatarsal ORIF. 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 Went to PT and is wearing braces for this. Intermittently uses PT to improve pain free aROM and wears AFO. Resolved Problems Problem Noted Date Diagnosed Date Resolved Date Deformity of lower extremity 08/18/2018 06/20/2021 Encounters Date Type Department Care Team Description 12/01/2024 9:40 AM EDT Office Visit [facility] ASIA [address] [place] [phone] Irma Henson DO Hypokalemia (Primary Dx); Cervical cancer screening 12/01/2024 8:33 AM EDT Hospital Encounter [facility] [address] [place] [address] Essential hypertension; Bilateral swelling of feet and ankles; Elevated TSH; Cervical cancer screening 12/01/2024 7:45 AM EDT Hospital Encounter [facility] [address] [place] [address] Radha Grier 12/01/2024 Results Follow-Up [address] [address] Oliver Harris, DO 12/01/[address] [address] Irma Henson, DO Medication Refill 11/29/[address] [address] Oliver Harris, DO Hypertension (/) 11/24/2024 7:27 AM EDT - 11/24/2024 11:59 PM EDT Hospital Encounter [facility] [address] [place] [address] Irina Adams, PT Discharge Disposition: Home or Self Care 11/21/[address] [address] Irma Henson, DO appointment moved 11/17/2024 7:26 AM EDT - 11/17/2024 11:59 PM EDT Hospital Encounter [facility] [address] [place] [address] Irina Adams, PT Discharge Disposition: Home or Self Care 11/06/2024 Results Follow-Up [address] [address] Irma Henson, DO 11/06/2024 Results Follow-Up [address] [address] Irma Henson, 11/03/2024 10:40 AM EDT Office Visit [address] [address] Oliver Harris DO Initial Medicare annual wellness visit (Primary Dx); Essential hypertension; Bilateral swelling of feet and ankles; Medication side effect, initial encounter; Other specified eating disorder; Other cerebral palsy (HCC) 11/03/2024 8:45 AM EDT - 11/03/2024 11:59 PM EDT Hospital Encounter [facility] [address] [place] [address] Irma Henson, Elevated TSH; Irregular menses Discharge Disposition: Home or Self Care 11/03/2024 8:44 AM EDT - 11/05/2024 11:59 PM EDT Hospital Encounter [facility] [address] [place] [address] Irma Henson, Irregular menses; Suprapubic pain Discharge Disposition: Home or Self Care 11/03/2024 7:24 AM EDT - 11/03/2024 8:43 AM EDT Hospital Encounter [facility] [address] [place] [address] Irina Adams, PT Discharge Disposition: Home or Self Care 11/03/2024 Abstract [facility] [address] [place] [address] Oliver Harris DO 10/16/2024 Orders Only [facility] [address] [place] [address] ProviderWilber MD 10/16/2024 Abstract [facility] [address] [place] [address] Oliver Harris DO 10/02/2024 Orders Only [facility] [address] [place] [address] Oliver Harris DO Essential hypertension (Primary Dx) 09/20/2024 3:20 PM EDT Telemedicine [facility] [place] [place] [address] [place] [address] Oliver Harris DO Elevated TSH (Primary Dx); Mixed stress and urge urinary incontinence 09/18/2024 Abstract [facility] [place] [place] [address] [place] [address] Garfield Menon, LANEY 09/18/2024 Abstract [facility] [place] [place] [address] [place] [address] Oliver Harris, 09/15/2024 Abstract [facility] [place] [address] [place] [address] Garfield Menon, LANEY 09/15/[address] [address] Oliver Harris, 09/15/[address] [phone] Oliver Harris DO AFO Brace 09/04/2024 Results Follow-Up [address] [address] Irma Henson DO 09/01/2024 2:17 PM EDT - 09/01/2024 11:59 PM EDT Hospital Encounter [facility] [address] [place], [place] [id number] Irregular menses; Suprapubic pain; Vaginal discharge Discharge Disposition: Home or Self Care 09/01/2024 1:20 PM EDT Office Visit [facility] [place] [place] [address] [place] [address] Irma Henson, Irregular menses (Primary Dx); Suprapubic pain; Vaginal discharge; Essential hypertension 08/31/[address] [address] Oliver Harris, from Last 3 Months Immunizations Immunization Administration Dates Next Due COVID-19, MODERNA THUY stratton r, Primary or Immunocompromised, (age 12y+), IM, 100 mcg/0.5mL 07/31/2020,07/01/2020 DTP 06/24/1996,04/25/1996,02/05/1996 DTaP vaccine 07/26/2000,07/07/1997 DTaP-IPV/Hib, PENTACEL, (age 6w-4y), IM, 0.5mL 07/26/2000,07/07/1997,06/24/1996,1996,02/15/1996 Hep A, HAVRIX, VAQTA, (age 1 2m-18y), IM, 0.5mL 06/24/1996,04/25/1996,1995 Hep B, ENGERIX-B, RECOMBIVAX -HB, (age - 19y), IM, 0.5mL 06/24/1996,04/25/1996,1995 Hib PRP-OMP, PEDVAXHIB, (age 2m-6y, Adlt Risk), IM, 0.5mL 07/07/1997 Hib vaccine 07/07/1997,06/24/1996 MMR, PRIORIX, M-M-R II, (age 12m+), SC, 0.5mL 07/26/2000,01/06/1997 Polio OPV 06/24/1996,04/25/1996,02/05/1996 Poliovirus, IPOL, (age 6w+), SC/IM, 0.5mL 07/26/2000,06/24/1996,04/25/1996,1995 TDaP, ADACEL (age 10y-64y), BOOSTRIX (age 10y+), IM, 0.5mL 08/20/2023 Varicella, VARIVAX, (age 12m +), SC, 0.5mL 04/14/2024,08/20/2023 Family History Medical History Relation Name Comments Substance Abuse Brother Pratik Garcia Opiates High Cholesterol Maternal Aunt Phoebe Wrightr Cancer Maternal Grandfather Yinka Chavisachegael Min or skin cancer, excised without issue High Cholesterol Maternal Grandfather Yinka Chavisacher Bleeding Prob Maternal Grandmother Maria Isabel Ochoa Ve ry heavy, prolonged periods Diabetes Maternal Grandmother Maria Isabel Rohrbacher Alis betes severe enough to result in her passing, generational at least 2 generations prior to her High Blood Pressure Maternal Grandmother Maria Isabel Chavisac her Hypertension Miscarriages / Stillbirths Maternal Grandmother Maria Isabel Dickmalkaacher Miscarriage Anemia Mother Andreina Garcia Anemic while m enstrating Bleeding Prob Mother Andreina Garcia Very heavy pe riods, to the point of passing out as a teen Diabetes Mother Andreina Garcia Pre-diabetes, and gestational diabetes while with me Vision Loss Mother Andreina Garcia Macular degene ration Breast Cancer Paternal Aunt Yudelka Ponce Cancer Paternal Grandfather Francois Garcia Pros ralph lead to throat, lung, colon, liver, severe metastasizing Breast Cancer Paternal Grandmother Dot Garcia Vision Loss Paternal Grandmother Dot Garcia Mac ular degeneration Relation Name Status Comments Brother Pratik Garcia Maternal Aunt Lesdottie Cristino Maternal Grandfather Yinka Rohrbacher Maternal Grandmother Maria Isabel Dickrbacher Mother Andreina Garcia Paternal Aunt Yudelka Ponce Paternal Grandfather Francois Garcia Paternal Grandmother Dot Garcia Social History Tobacco Use Types Packs/Day Years Used Date Smoking Tobacco: Never Smokeless Tobacco: Never Tobacco Cessation:Counseling Given: Not Answered Alcohol Use Standard Drinks/Week Comments Not Currently 0 (1 standard drink = 0.6 oz pur e alcohol) [facility] Utilities Answer Date Recorded In the past 12 months has th e electric, gas, oil, or water company threatened [...] place to sleep or slept in a retirement (including now)? No 10/03/2022 Housing Stability Vital Sign Answer Tonny e Recorded In the last 12 months, was t here a time when you were not able to pay the mortgage or rent on time? No 04/28/2024 In the past 12 months, how m any times have you moved where you were living? 0 04/28/2024 At any time in the past 12 m [facility], were you homeless or living in a retirement (including now)? No 04/28/2024 Food Insecurity Answer [...] Orientation Straight 06/10/2023 6: 54 PM EST Last Filed Vital Signs Vital Sign Reading [...] Mass Index 35.02 12/01/2024 9:40 AM EDT Plan of Treatment Upcoming Encounters Date Type Department Care Team (Late st Contact Info) Description 12/08/2024 7:45 AM EDT Appointment [facility] [address] [place] [address] Irina Adams, PT Health Maintenance Due Date Last Done Comments HIV screen 12/13/2010 Hepatitis C screen 12/13/2013 COVID-19 Vaccine ( season) 2023 07/31/2020, 07/01/2020 Annual Wellness Visit (Medicare) 12/28/2023 Pap smear 07/08/2024 07/08/2021 Flu vaccine (#1) 11/17/2024 Depression Monitoring 10/31/2025 10/31/2024, 025 DTaP/Tdap/Td vaccine (7 - Td or Tdap) 08/19/2033 08/20/2023, 07/26/2000, 07/26/2000, Additional history exists Hepatitis A vaccine Aged Out 06/24/1996, 04/25/1996, 1995 No longer eligible based on patient's age to complete this topic Hepatitis B vaccine Completed 06/24/1996, 04/25/1996, 1995 Hib vaccine Completed 07/26/2000, 06/18, 07/07/1997, Additional history exists Polio vaccine Completed 07/26/2000, 0412/2000, 07/07/1997, Additional history exists Varicella vaccine Completed 04/14/2024, 08/20/2023 Depression Screen Discontinued 10/31/2024, 10/31/2024 HPV vaccine (No Doses Required) Completed Meningococcal (ACWY) vaccine Aged Out No longer eligible based on patient's age to complete this topic Meningococcal B vaccine Aged Out No l onger eligible based on patient's age to complete this topic Pneumococcal 0-49 years Vaccine Aged Out No longer eligible based on patient's age to complete this topic Procedures Procedure Name Priority Date/Time Associated Diagnosis Comments BASIC METABOLIC PANEL Routine 12/01/2024 8:35 AM EDT COMPREHENSIVE METABOLIC PANEL Routine 12/01/2024 8:35 AM EDT Bilateral swelling of feet and ankles Essential hypertension US PELVIS COMPLETE Routine 11/03/2024 10 :14 AM EDT Irregular menses Suprapubic pain T4, FREE Routine 11/03/2024 8:51 AM EDT Elevated TSH Irregular menses TSH Routine 11/03/2024 8:51 AM EDT Elevated TSH Irregular menses ECHOCARDIOGRAM TRANSTHORACIC Routine 10/13/2024 7:48 AM EDT VAGINITIS DNA PROBE Routine 09/01/2024 2 :20 PM EDT Irregular menses Suprapubic pain Vaginal discharge T4, FREE Routine 09/01/2024 2:19 PM EDT Irregular menses TSH Routine 09/01/2024 2:19 PM EDT Irregular menses CBC WITH AUTO DIFFERENTIAL Routine 09/01/2024 2:19 PM EDT Irregular menses MUSIC COPYIST CYTOLOGY Routine 07/08/2021 8:42 AM EDT from Last 3 Months or Most Recently Relevant to Health Maintenance Results * (ABNORMAL) Comprehensive Metabolic Panel (12/01/2024 8:35 AM EDT) Sodium 137 135 - 144 mmol/L 12/01/2024 8:35 AM EDT [facility] Potassium 2.8(LL) 3.7 - 5.3 mmol/L 12/01/2024 8:35 AM [email or web address] Chloride 96(L) 98 - 107 mmol/L 12/01/2024 8:35 AM [email or web address] CO2 31 20 - 31 mmol/L 12/01/2024 8:35 AM [email or web address] Anion Gap 10 9 - 17 mmol/L 12/01/2024 8:35 AM [email or web address] Glucose 100(H) 70 - 99 mg/dL 12/01/2024 8:35 AM [email or web address] BUN 8 6 - 20 mg/dL 12/01/2024 8:35 AM [email or web address] Creatinine 0.4(L) 0.5 - 0.9 mg/dL 12/01/2024 8:35 AM [email or web address] Est, Glom Filt Rate >90 >60 mL/min/1.7 3m2 12/01/2024 8:35 AM [email or web address] Comment: These results are not intended [...] 8.6 - 10.4 mg/dL 12/01/2024 8:35 AM [email or web address] Total Protein 7.3 6.4 - 8.3 g/dL 12/01/2024 8:35 AM [email or web address] Albumin 3.9 3.5 - 5.2 g/dL 12/01/2024 8:35 AM [email or web address] Albumin/Globulin Ratio 1.1 1.0 - 2.5 12/01/2024 8:35 AM [email or web address] Total Bilirubin 0.4 0.3 - 1.2 mg/dL 12/01/2024 8:35 AM [email or web address] Alkaline Phosphatase 95 35 - 104 U/L 12/01/2024 8:35 AM EDT [email or web address] ALT 14 5 - 33 U/L 12/01/2024 8:35 AM EDT [facility] [employer] [facility] [employer] [facility] AST 18 <32 U/L 12/01/2024 8:35 AM EDT [facility] Blood BLOOD SPECIMEN / Unknown 12/01/2024 8:35 AM EDT 12/01/2024 8:36 AM EDT Oliver Harris DO CHEMISTRY ORDERABLES Final Result [facility] [address] [place] [address], [facility] [phone] * (ABNORMAL) Basic Metabolic Panel (12/01/2024 8:35 AM EDT) Sodium 138 135 - 144 mmol/L 12/01/2024 8:35 AM T [email or web address] Potassium 2.8(LL) 3.7 - 5.3 mmol/L 12/01/2024 8:35 AM [email or web address] Chloride 95(L) 98 - 107 mmol/L 12/01/2024 8:35 AM EDT [facility] CO2 30 20 - 31 mmol/L 12/01/2024 8:35 AM [email or web address] Anion Gap 13 9 - 17 mmol/L 12/01/2024 8:35 AM T [facility] Glucose 100(H) 70 - 99 mg/dL 12/01/2024 8:35 AM EDT [facility] BUN 8 6 - 20 mg/dL 12/01/2024 8:35 AM T [email or web address] Creatinine 0.5 0.5 - 0.9 mg/dL 12/01/2024 8:35 AM EDT [email or web address] Est, Glom Filt Rate >90 >60 mL/min/1.7 3m2 12/01/2024 8:35 AM EDT [email or web address] Comment: These results are not intended [...] - 10.4 mg/dL 12/01/2024 8:35 AM EDT [facility] 12/01/2024 8:35 AM EDT 12/01/2024 8:40 AM EDT us Scott Turner COMPLIANCE SPECIALIST - HELP DESK TECHNICIAN CHEMISTRY ORDERABLES Sophie l Result [facility] [address] [place] [address], [facility] [phone] * US PELVIS COMPLETE (11/03/2024 10:14 AM EDT) Anatomical Region Laterality Modality Abdomen, Pelvis, Hip Ultrasound 11/03/2024 10:1 4 AM EDT Impressions 11/03/2024 10:56 AM EDT No acute findings on transabdominal pelvic ultrasound Narrative 11/03/2024 10:56 AM EDT Exam: Ultrasound pelvis complete INDICATION: Irregular menstrual bleeding Transabdominal ultrasound: Uterus measures 7 x 3.4 cm x 5 cm per uterine volume 62 cc. Endometrium 6.6 mm. No free fluid. Right ovary: 2.9 x 3.4 x 1.6 cm Left ovary: 3 x 2 x 1.9 cm No evidence for cyst or mass. Transvaginal ultrasound: Patient declined exam Procedure Note Daerk Pruitt MD - 11/03/2024 Exam: Ultrasound pelvis complete INDICATION: Irregular menstrual bleeding Transabdominal ultrasound: Uterus measures 7 x 3.4 cm x 5 cm per uterine volume 62 cc. Endometrium6.6 mm. No free fluid. Right ovary: 2.9 x 3.4 x 1.6 cm Left ovary: 3 x 2 x 1.9 cm No evidence for cyst or mass. Transvaginal ultrasound: Patient declined exam IMPRESSION: No acute findings on transabdominal pelvic ultrasound us Irma L Yonley DO IMG US ORDERABLES Final Resu lt * (ABNORMAL) TSH (11/03/2024 8:51 AM EDT) Only the most recent of2 resultswithin the time period is included. Pathologist [facility] TSH 5.23(H) 0.27 - 4.20 uIU/mL 11/03/2024 8:51 AM EDT [facility] [employer] Blood BLOOD SPECIMEN / Unknown 11/03/2024 8:51 AM EDT 11/03/2024 8:52 AM EDT Irma L Erlinnley DO CHEMISTRY ORDERABLES Final R esult Performing Organization Address City/[facility]/ZIP Co de Phone Number [facility] [address] [facility] [phone] * T4, Free (11/03/2024 8:51 AM EDT) Only the most recent of2 resultswithin the time period is included. [facility] T4 Free 1.0 0.92 - 1.68 ng/dL 11/03/2024 8:51 AM EDT [email or web address] Blood BLOOD SPECIMEN / Unknown 11/03/2024 8:51 AM EDT 11/03/2024 8:52 AM EDT us Irma Kernnley DO CHEMISTRY ORDERABLES Final R esult [facility] [address] [facility]. [place] [phone], [facility] [phone] [email or web address] [address] [place], [place] [id number], [facility] [phone] * Echocardiogram transthoracic (10/13/2024 7:48 AM EDT) us Historical Provider ECHO ORDERABLES Final Res ult * (ABNORMAL) Vaginitis DNA Probe (09/01/2024 2:20 PM EDT) Pathologist [facility] Source .VAGINAL SWAB 09/01/2024 2:20 PM EDT [facility] Trichomonas NEGATIVE NEGATIVE 09/01/2024 2:20 PM EDT [facility] [employer] Comment:for Trichomonas Vagi nalis GARDNERELLA VAGINALIS POSITIVE(A) NEGATIVE 09/01/2024 2:20 PM EDT [facility] Comment:for Gardnerella vagi nalis Jennie species NEGATIVE NEGATIVE 2:20 PM EDT [facility] [employer] Comment: for Jennie sp. Method of testing is a DNA probe intended for detection and identification of Jennie species, Gardnerella vaginalis, and Trichomonas vaginalis nucleic acid in vaginal fluid specimens from patients with symptoms of vaginitis/vaginosis. SPECIMEN FROM CERVIX OR VAGINA / Unknown 09/01/2024 2:20 PM EDT 09/01/2024 2:21 PM EDT Irma Henson DO MICROBIOLOGY - GENERAL ORDER KAREN Final Result [facility] [address] [place] [address], [facility] [phone] [place] [address] [place] [address], [facility] [phone] * (ABNORMAL) CBC with Auto Differential (09/01/2024 2:19 PM EDT) [facility] WBC 8.0 3.5 - 11.0 k/uL 09/01/2024 2:19 PM EDT [facility] RBC 5.13 4.00 - 5.20 m/uL 09/01/2024 2:19 PM EDT [facility] Hemoglobin 13.9 12.0 - 16.0 g/dL 09/01/2024 2:19 PM EDT [facility] Hematocrit 41.5 36.0 - 46.0 % 09/01/2024 2:19 PM EDT [facility] MCV 80.9 80.0 - 100.0 fL 09/01/2024 2:19 PM EDT [facility] MCH 27.1 26.0 - 34.0 pg 09/01/2024 2:19 PM [facility] MCHC 33.5 31.0 - 37.0 g/dL 09/01/2024 2:19 PM [facility] RDW 13.0 12.1 - 15.2 % 09/01/2024 2:19 PM [facility] Platelets 403 140 - 450 k/uL 09/01/2024 2:19 PM [facility] MPV 9.7 6.0 - 12.0 fL 09/01/2024 2:19 PM [facility] Neutrophils % 60 47 - 75 % 09/01/2024 2:19 PM [facility] Lymphocytes % 29 15 - 40 % 09/01/2024 2:19 PM [facility] Monocytes % 9(H) 4 - 8 % 09/01/2024 2:19 PM [facility] Eosinophils % 1 0 - 5 % 09/01/2024 2:19 PM [facility] Basophils % 1 0 - 2 % 09/01/2024 2:19 PM [facility] Immature Granulocytes % 0 0 - 5 % 09/01/2024 2:19 PM [facility] Neutrophils Absolute 4.89 2.5 - 7.0 k/uL 09/01/2024 2:19 PM [facility] Lymphocytes Absolute 2.30 1.00 - 4.80 k/uL 09/01/2024 2:19 PM [facility] Monocytes Absolute 0.68 0.00 - 1.00 k/uL 09/01/2024 2:19 PM [facility] Eosinophils Absolute 0.08 0.00 - 0.40 k/uL 09/01/2024 2:19 PM [email or web address] Basophils Absolute 0.06 0.00 - 0.20 k/uL 09/01/2024 2:19 PM [email or web address] Immature Granulocytes Absolute 0.02 0.00 - 0.30 k/uL 09/01/2024 2:19 PM [facility] Blood BLOOD SPECIMEN / Unknown 09/01/2024 2:19 PM EDT 09/01/2024 2:20 PM EDT us Irma Henson DO HEMATOLOGY ORDERABLES Final Result Performing Organization Address City/[facility]/ZIP Co de Phone Number [facility] [address] [place] [address], [facility] [phone] * MUSIC COPYIST Cytology (07/08/2021 8:42 AM EDT) Cytology Report INTERPRETATION Cervical material, (ThinPrep vial, Imaging-assisted review): Specimen Adequacy: Satisfactory for evaluation. -Endocervical/tra nsformation zone component is absent. Descriptive Diagnosis: Negative for intraepithelial lesion or malignancy. Shift in sushila suggestive of bacterial vaginosis. Radiologist Diagnostic: RADHA Trammell(ASCP) Electronically Signed Out /07/14/2021 Source: A: Cervical material, (ThinPrep vial, Imaging-assisted review) Clinical History Z12.4 Encounter for screening for malignant neoplasm of cervix LMP: 06/16/2021 GYNECOLOGIC CYTOLOGY REPORT Patient Name: NANCY GARCIA [facility] Rec: [id number] Path Number: [id number] [facility] ANATOMIC PATHOLOGY [address] [place], [place] [phone] [email or web address] CERVICAL MATERIAL 07/08/2021 8:42 AM EDT 07/09/2021 8:42 AM EDT us Angelita Chandra MD PATHOLOGY/CYTOLOGY ORDERABLES Final Result Performing Organization Address City/[facility]/ZIP Co de Phone Number [facility] [address] [place] [address], [facility] [phone] [facility] [address] [place] [address] from Last 3 Months or Most Recently Relevant to Health Maintenance Insurance MEDICARE [place]ICAID [place] Care Teams General Service Officer Relationship Specialty Start Date End Date Oliver Harris DO [address] [place] [address] PCP - General Family Medicine 06/20/21
--- OUTSIDE RECORDS SUMMARY | 2024-12-01 12:54 | XMS_ITS | Encounter Summary ---
Author Organization [facility] Address [address], [address] [place] [address] Care Team Providers Care Hoop Bender Tank Name Role Phone Oliver Harris DO Primary Care Provider [phone] Reason for Visit * Reason Onset Date Comments Hypertension 11/29/2024 Encounter Details Date Type Department Care Team (Late st Contact Info) Description 11/29/2024 Telephone [facility] ASIA [address] [place] [address] Oliver Harris DO [address] [id number] Hypertension (/) Social History Tobacco Use Types Packs/Day Years Used Date Smoking Tobacco: Never Smokeless Tobacco: Never Alcohol Use Standard Drinks/Week Comments Not Currently 0 (1 standard drink = 0.6 oz pur e alcohol) [facility] Utilities Answer Date Recorded In the past 12 months has [employer], gas, oil, or water [email or web address] threatened to shut off services in your [...] time in the past 12 m [facility], were you homeless or living in a [...] Info) Description 12/08/2024 7:45 AM EDT Appointment [facility] Physical Therapy [address] [place] [address] Irina Adams, PT Pending Results Name Type Priority Associated Diagnoses Date /Time Aldosterone Lab Routine Essential hypertension 12/01/2024 8:35 AM EDT Scheduled Orders Name Type Priority Associated Diagnoses Orde r Schedule Aldosterone Lab Routine Essential hypertension Expected: 11/29/2024, Expires: 11/29/2025 documented as of this encounter Visit Diagnoses Diagnosis Essential hypertension- Primary Unspecified essential hypertension documented in this encounter Additional Health Concerns Assessment Noted Time A fall risk assessment has been complete d for the patient 10/31/2024 9:16 AM EDT documented as of this encounter Care Teams Hoop Bender Tank Relationship Specialty Start Date End Date Oliver Harris DO [address] [place] [address] PCP - General Family Medicine 06/20/21 documented as of this encounter
--- OUTSIDE RECORDS SUMMARY | 2024-12-01 12:54 | XMS_ITS | Encounter Summary ---
Author Organization [facility] Address [address], [address] [place] [address] Care Team Providers Care Facilities Custodian Name Role Phone Oliver Harris DO Primary Care Provider Reason for Visit * Reason Onset Date Comments appointment moved 11/21/2024 Encounter Details Date Type Department Care Team (Late st Contact Info) Description 11/21/2024 Telephone [facility] ASIA [address] [place] [address] Irma Henson, [address] [place] [address] appointment moved Social History Tobacco Use Types Packs/Day Years Used Date Smoking Tobacco: Never Smokeless Tobacco: Never Alcohol Use Standard Drinks/Week Comments Not Currently 0 (1 standard drink = 0.6 oz pur e alcohol) [facility] Utilities Answer Date Recorded In the past 12 months has [employer], gas, oil, or water company threatened [...] place to sleep or slept in a usp (including now)? No 10/03/2022 Housing Stability Vital Sign Answer Tonny e Recorded In the last 12 months, was t here a time when you were not able to pay the mortgage or rent on time? No 04/28/2024 In the past 12 months, how m any times have you moved where you were living? 0 04/28/2024 At any time in the past 12 m [facility], were you homeless or living in a usp (including now)? No 04/28/2024 Food Insecurity Answer [...] Info) Description 12/08/2024 7:45 AM EDT Appointment [facility] Physical Therapy [address] [place] [address] Irina Adams, PT documented as of this encounter Visit Diagnoses Not on filedocumented in this encounter Additional Health Concerns Assessment Noted Time A fall risk assessment has been complete d for the patient 10/31/2024 9:16 AM EDT documented as of this encounter Care Teams Facilities Custodian Relationship Specialty Start Date End Date Oliver Harris DO [address] [place] [address] PCP - General Family Medicine 06/20/21 documented as of this encounter
--- OUTSIDE RECORDS SUMMARY | 2024-12-01 12:54 | XMS_ITS | Encounter Summary ---
Author Organization [facility] Address [address], [address] [place] [address] Care Team Providers Care Health Care Specialist Name Role Phone Oliver Harris DO Primary Care Provider Encounter Details Date Type Department Care Team (Late st Contact Info) Description 11/06/2024 Results Follow-Up [facility] ASIA [address] [place] [address] Irma Henson, [address] [place] [address] Social History Tobacco Use Types Packs/Day Years Used Date Smoking Tobacco: Never Smokeless Tobacco: Never Alcohol Use Standard Drinks/Week Comments Not Currently 0 (1 standard drink = 0.6 oz pur e alcohol) [facility] Utilities Answer Date Recorded In the past 12 months has [employer], gas, oil, or water [facility] threatened to shut off services in your [...] place to sleep or slept in a nursing home (including now)? No 10/03/2022 Housing Stability Vital Sign Answer Tonny e Recorded In the last 12 months, was t here a time when you were not able to pay the mortgage or rent on time? No 04/28/2024 In the past 12 months, how m any times have you moved where you were living? 0 04/28/2024 At any time in the past 12 m [facility], were you homeless or living in a nursing home (including now)? No 04/28/2024 Food Insecurity Answer [...] Info) Description 12/08/2024 7:45 AM EDT Appointment [facility] Physical Therapy [address] [place] [address] Irina Adams, PT documented as of this encounter Visit Diagnoses Not on filedocumented in this encounter Additional Health Concerns Assessment Noted Time A fall risk assessment has been complete d for the patient 10/31/2024 9:16 AM EDT documented as of this encounter Care Teams Health Care Specialist Relationship Specialty Start Date End Date Oliver Harris DO [address] [place] [address] PCP - General Family Medicine 06/20/21 documented as of this encounter
--- OUTSIDE RECORDS SUMMARY | 2024-12-01 12:54 | XMS_ITS | Clinical Summary ---
Author Organization [facility] Address [address] [place] [address] Care Team Providers Care Tooth Grinder Name Role Phone Unavailable Primary Care Provider [...]
--- OUTSIDE RECORDS SUMMARY | 2024-12-01 12:54 | XMS_ITS | Clinical Summary ---
Author Organization [email or web address] Address [id number] [address] [place] [address] Care Team Providers Care Windows Software Engineer Name Role Phone Stephen Cheng MD Primary Care Provider [phone] Social History Tobacco Use Types Packs/Day Years [...] file Medical Devices Not on file Insurance [facility] Care Teams Windows Software Engineer Relationship Specialty Start Date End Date Stephen Cheng MD PCP - General 09/01/17
--- OUTSIDE RECORDS SUMMARY | 2024-12-01 12:54 | XMS_ITS | Encounter Summary ---
Author Organization [facility] Address [address], [address] [place] [address] Care Team Providers Care Roller Bearing Inspector Name Role Phone Oliver Harris DO Primary Care Provider Reason for Visit * Reason Onset Date Comments Medication Refill 12/01/2024 Encounter Details Date Type Department Care Team (Late st Contact Info) Description 12/01/2024 Refill [facility] [address] [place] [address] Irma Henson, DO [address] [place] [address] Medication Refill Social History Tobacco Use Types Packs/Day Years Used Date Smoking Tobacco: Never Smokeless Tobacco: Never Alcohol Use Standard Drinks/Week Comments Not Currently 0 (1 standard drink = 0.6 oz pur e alcohol) [facility] Utilities Answer Date Recorded In the past 12 months has [employer], gas, oil, or water company threatened to [...] place to sleep or slept in a care home (including now)? No 10/03/2022 Housing Stability [...] any time in the past 12 m [facility], were you homeless or living in a care home (including now)? No 04/28/2024 Food Insecurity [...] Info) Description 12/08/2024 7:45 AM EDT Appointment [facility] Physical Therapy [address] [place] [address] Irina Adams, PT documented as of this encounter Visit Diagnoses Not on filedocumented in this encounter Additional Health Concerns Assessment Noted Time A fall risk assessment has been complete d for the patient 10/31/2024 9:16 AM EDT documented as of this encounter Care Teams Roller Bearing Inspector Relationship Specialty Start Date End Date Oliver Harris DO [address] [place] [address] PCP - General Family Medicine 06/20/21 documented as of this encounter
--- OUTSIDE RECORDS SUMMARY | 2024-12-01 12:54 | XMS_ITS | Clinical Summary ---
Author Organization [facility] Address [address] [place] [address] Care Team Providers Care Soiled Linen Distributor Name Role Phone Oliver Harris DO Primary Care Provider [phone] Allergies No known active allergies Medications ergocalciferol (Vitamin D-2) 1.25 MG (03438 Units) capsule Take 1 capsule by mouth every 7 (seven) days. 5 Active hydroCHLOROthiazi de (HYDRODiuril) 50 mg tablet Take 1 tablet by mouth in the morning. 5 Active sertraline (Zoloft) 50 mg tablet Take 1 tablet by mouth in the morning. 5 Active losartan (Cozaar) 25 mg tabletIndications :Primary hypertension Take 1 tablet (25 mg) by mouth in the morning. 30 tablet 11 5 11/18/19 26 Active amLODIPine (Norvasc) 5 mg tablet Take 1 tablet by mouth in the morning. 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 [...] Encounters Date Type Department Care Team Description 11/17/2024 9:40 AM EDT Office Visit [place] [address] [place] [address] Scott Tompkins, NAYELY Primary hypertension (Primary Dx); Dyspnea on exertion; [...] Heterosexual or Straight 10/19 3:33 PM EDT Last Filed Vital Signs Vital Sign Reading [...] Mass Index 33.73 11/17/2024 9:31 AM EDT Plan of Treatment Upcoming Encounters Date Type Department Care Team (Late st Contact Info) Description 01/12/2025 10:00 AM EDT Office Visit [facility] [address] [place] [address] Scott Tompkins, SUPERVISOR TWISTING DEPARTMENT [address] [place] [address] Health Maintenance Due Date Last Done Comments Medicare Annual Wellness (AWV) 1995 Depression Screening 2007 COVID-19 Vaccine ( season) 2023 07/31/2020, 07/01/2020 Pap Smear 07/08/2024 07/08/2021 Influenza Vaccine (#1) 2024 Adult Tetanus 08/19/2033 08/20/2023 Zoster Vaccines (1 of 2) 12/13/2045 04/14/2024, 06/2023 HIB Vaccines Completed 07/26/2000, 06/18, 07/07/1997, Additional history exists IPV Vaccines Completed 07/26/2000, 0 12/2000, 07/07/1997, Additional history exists Varicella Vaccines [...] on patient's age to complete this topic Insurance [place]ICAID [place] [employer] Care Teams Soiled Linen Distributor Relationship Specialty Start Date End Date Oliver Harris DO [address] [place] [address] PCP - General Family Medicine 08/17/24
[2024-12-01 13:05] LABS: Hemoglobin 12.6 g/dL (12.0-16.0)
== END 2024-12-01 12:51 | disposition home or self-care (01) ==
LOC: CARD 12:52
PROVIDERS: PCP Family Medicine
DX: R06.09 Other forms of dyspnea (principal)
CPT/HCPCS: 36415; 85018; 94010; 94726; 94729